=== PATIENT | male | born 1975 | race Two or more races ===

== ENCOUNTER 2018-11-21 13:58 | Emergency (ER) | payer OTHER ==
[~2018-11-21] VITALS: Ht 180.3 cm; Wt 124.7 kg
[2018-11-21 14:13] VITALS: BP 138/69
[2018-11-21] MEDS ORDERED: IBUPROFEN 600 MG TABLET PO ONE ×2 (14:59→15:00)
[2018-11-21] MEDS ORDERED: ALPRAZOLAM 0.5 MG TABLET ONE (14:59)
[2018-11-21] MEDS ORDERED: ALPRAZOLAM 0.5 MG TABLET PO ONE (15:00)
== END 2018-11-21 15:40 | disposition home or self-care (01) ==
LOC: ER 14:04
DX: F41.9 Anxiety disorder, unspecified (principal); R07.89 Other chest pain; E78.00 Pure hypercholesterolemia, unspecified; Z60.2 Problems related to living alone